=== PATIENT | male | born 1980 | race Caucasian/White ===

== ENCOUNTER 2021-01-08 01:16 | Emergency (ER) | payer SELFPAY ==
[~2021-01-08] VITALS: Ht 167.6 cm; Wt 76.7 kg
[2021-01-08 01:24] VITALS: BP 115/71
== END 2021-01-08 02:28 | disposition left against medical advice (07) ==
LOC: MED 01:16
DX: H92.02 Otalgia, left ear (principal); Z53.21 Procedure and treatment not carried out due to patient leaving prior to being seen by health care provider